=== PATIENT | male | born 1970 | race Caucasian/White ===

== ENCOUNTER 2020-04-25 14:47 | Emergency (ER) | payer BC ==
[~2020-04-25] VITALS: Ht 188 cm; Wt 106.6 kg
[2020-04-25] MEDS ORDERED: NORVASC5 MG PO (15:09)
[2020-04-25] MEDS ORDERED: FLOMAX0.4 MG PO (15:09)
--- NOTE | 2020-04-25 16:04 | EKG ---
[address] [place] [address] ELECTROCARDIOGRAM REPORT Name: FRANCI DOWD Room #: [facility] M.R.#: [id number] Admission: Attend Phys: Discharge: Date of : 66 Report #: [id number] [facility] ED Test Date: 2020-04-25 Test Time: 14:55:03 Pat Name: FRANCI DOWD Department: Room: Gender: E [employer]: dru : 1970 Requested By: Michael Louis Order Number: [id number] MD: Yovany Sorto Measurements Intervals Tie Siding Rate: 73 P: 115 ND: 142 QRS: -17 QRSD: 104 T: 71 QT: 400 QTc: 441 Interpretive Statements Sinus rhythm Borderline left axis deviation RSR' in V1 or V2, probably normal variant Minimal ST depression, lateral leads No previous ECG available for comparison Electronically Signed On 04-25-2020 16:04:37 [employer] by Yovany Sorto [email or web address] <ELECTRONICALLY SIGNED> By: Yovany Sorto MD, [facility] 04/25/20 1604 1455 1455 Yovany Sorto MD, FACC /EPI
[2020-04-25 16:28] LABS: ABSOLUTE NEUTROPHILS 3.6 thou/uL (1.4-8.2); BASOPHILS 0.8 % (0.0-2.0); EOSINOPHILS 1.7 % (0.0-3.0); HEMATOCRIT 42.5 % (42.0-52.0); HEMOGLOBIN 14.2 gm/dL (14.0-18.0); LYMPHOCYTES 27.3 % (24.0-44.0); MCH 30.3 pg (26.0-34.0); MCHC 33.4 g/dL (28.0-37.0); MCV 90.9 fL (80.0-100.0); MONOCYTES 10.1 % (1.0-8.0); PLATELET COUNT 220 thou/uL (150-400); POLYS 60.1 % (36.0-66.0); RBC 4.67 mil/uL (4.50-6.00); RDW 13.3 % (10.5-14.5); WBC 5.9 thou/uL (4.0-11.0)
[2020-04-25 16:35] LABS: ANION GAP 6 mmol/L (7-16); BUN 14 mg/dL (7-18); CALCIUM 8.9 mg/dL (8.5-10.1); CHLORIDE 104 mmol/L (98-107); CO2 30 mmol/L (21-32); CREATININE 0.9 mg/dL (0.7-1.3); GLUCOSE 81 mg/dL (74-106); POTASSIUM 3.8 mmol/L (3.5-5.1); SODIUM 140 mmol/L (136-145)
[2020-04-25 16:47] LABS: ALBUMIN 4.2 g/dL (3.4-5.0); DIRECT BILIRUBIN 0.1 mg/dL (<0.1-0.2); LIPASE 71 U/L (73-393); MAGNESIUM 2.1 mg/dL (1.8-2.4); SGOT 33 U/L (15-37); SGPT 37 U/L (16-63); TOTAL BILIRUBIN 0.4 mg/dL (0.2-1.0); TOTAL PROTEIN 7.4 g/dL (6.4-8.2); TROPONIN-I <0.06 ng/mL (<0.06)
[2020-04-25 17:23] LABS: URINE BILIRUBIN NEGATIVE (Negative); URINE BLOOD NEGATIVE (Negative); URINE CLARITY CLEAR; URINE COLOR YELLOW; URINE GLUCOSE-RANDOM* NEGATIVE (Negative); URINE KETONES NEGATIVE (Negative); URINE LEUKOCYTES-REFLEX NEGATIVE (Negative); URINE NITRITE-REFLEX NEGATIVE (Negative); URINE PROTEIN (DIPSTICK) NEGATIVE (Negative); URINE SPECIFIC GRAVITY 1.015 (1.005-1.035); URINE UROBILINOGEN 0.2 E.U./dl (0.2-1.0)
[2020-04-25 17:50] VITALS: BP 139/90
== END 2020-04-25 17:50 | disposition home or self-care (01) ==
LOC: ER 14:47
PROVIDERS: Emergency Medicine
DX: M79.662 Pain in left lower leg (principal); M62.82 Rhabdomyolysis; I10 Essential (primary) hypertension; E78.5 Hyperlipidemia, unspecified; Z79.899 Other long term (current) drug therapy; Z88.0 Allergy status to penicillin